=== PATIENT | male | born 1950 | race Caucasian/White ===

== ENCOUNTER 2018-09-16 09:55 | Emergency (ER) | payer MEDICARE ==
[2018-09-16 10:08] VITALS: PULSE 75; RESP 16; TEMP 98.1
[2018-09-16] MEDS ORDERED: SODIUM CHLORIDE 0.9% 500 ML 500 ML IV STA (10:22)
--- NOTE | 2018-09-16 10:58 | ED ---
Weakness HPI - General Chief complaint: Weakness Stated complaint: Decreased Mobility Time Seen by Provider: 09/16/18 10:10 Source: patient, EMS Mode of arrival: EMS Limitations: physical limitation - History of Present Illness Initial comments: 67-year-old male history of previous CVA tenderness prior presents today for chief complaint of left leg weakness 2 weeks. Patient states about 2-3 weeks ago he noticed that his left leg felt weak in comparison to the right he states he was scared to walk secondary to the weakness. Patient denied any headache speech changes neck pain nausea head injury decreased sensation dizziness or any other associated symptoms at the time of onset. Patient denies any falls or injury. Patient states he's been wheeling around on a wheelchair for the past 2 weeks at home. His family brought over her walker and states that he was able to walk steadily with a 4 wheeled walker. Patient states he still feels as th ough the left leg is weak. Patient denies any chest pain shortness of breath leg swelling. Remaining review of system negative. Patient states his family made him come in. Upon arrival patient VS within acceptable limits. Patient appears well. Family member at bedside states that patient is at baseline. - Related Data Home Medications Medication Instructions Recorded Confirmed Cholecalciferol (Vitamin D3) 2,000 unit PO DAILY 09/16/18 09/16/18 [Vitamin D3] Lisinopril [Zestril] 20 mg PO DAILY 09/16/18 09/16/18 Simvastatin [Zocor] 40 mg PO DAILY 09/16/18 09/16/18 Allergies Allergy/AdvReac Type Severity Reaction Status Date / Time No Known Allergies Allergy Unverified 09/16/18 10:09 Review of Systems ROS Statement: Those systems with pertinent positive or pertinent negative responses have been documented in the HPI. ROS Other: All systems not noted in ROS Statement are negative. General Exam - General Exam Comments Initial Comments: General: The patient is awake and alert, in no distress, and does not appear acutely ill. Eye: +3 mm pupils are equal, round and reactive to light, extra-ocular movements are intact. No nystagmus. There is normal conjunctiva bilaterally. No signs of icterus. Ears, nose, mouth and throat: There are moist mucous membranes and no oral lesions. Neck: The neck is supple, there is no tenderness or JVD. Cardiovascular: There is a regular rate and rhythm. No murmur, rub or gallop is appreciated. Respiratory: Lungs are clear to auscultation, respirations are non-labored, breath sounds are equal. No wheezes, stridor, rales, or rhonchi. Gastrointestinal: Soft, non-distended, non-tender abdomen without masses or organomegaly noted. There is no rebound or guarding present. No CVA tenderness. Bowel sounds are unremarkable. Normal rectal tone. No blood. No hemorrhoids/ma sses palpable. Musculoskeletal: Normal inspection of the low back, hips and knees. Patient is able to fully range at the hips bilaterally however complains of tenderness wit h flexion at the left hip in the lumbar spine. Normal ROM, no tenderness at the right hip knees and ankles bilaterally. Strength 5/5 at the hips, knees and ankles b/l appears equal. Sensation intact of the LE equal in comparison b/l. Radial and DP pulses equal bilaterally 2+. Neurological: A&O x 3. CN II-XII intact, memory intact to immediately, intermediate and lobsterman recall. Able to follow simple verbal. Able to name a common object (pen). High quality, labial (pa) and lingual (la) speech. Low quality posterior pharynx/larynx (ga) voice sounds. Able to express general knowledge (days in a week). No hemineglect or inattention noted. Finger agnosia (-) and spatially oriented. Light touch sensation present over the face, chest, abdomen, back, UE bilaterally, and LE bilaterally. Able to localize point during point localization b/l and extinction. No visible bulk atrophy, hypertrophy, fasciculations, or myoclonus of the UE or LE b/l. Full PROM in UE and LE b/l. Bilateral muscle strength 5/5 for the following muscles: deltoid, biceps, triceps, brachioradialis, wrist extensors/flexor, hip flexor, hip abductors/adductors, hamstrings, quadriceps, feet dorsiflexors/plantar flexors. Finger to nose, finger to the examiners finger, and heel to damon coordinated and accurate b/l. Coordinated and even demonstration of hand flip, finger to thumb, and toe tap b/l. (-) pronator drift. No nuchal rigidity. Skin: Skin is warm and dry and no rashes or lesions are noted. Psychiatric: Cooperative, appropriate mood & affect, normal judgment. Limitations: physical limitation Course Vital Signs 09/16/18 09/16/18 09/16/18 09:56 12:15 13:43 Temperature 98.1 F 98.1 F 98.1 F Pulse Rate 75 75 75 Respiratory 16 16 16 Rate Blood Pressure 136/84 128/76 138/76 O2 Sat by Pulse 98 99 99 Oximetry EKG Findings - EKG Comments: EKG Findings:: Ventricular rate 74 bpm, LA interval 162 ms, QRS duration 88 ms, QT/QTC 386/428 ms. There is no ST elevation or depression. Nonspecific T wave. Medical Decision Making - Medical Decision Making 67-year-old male presenting for low back pain and decreased ability to ambulate due to left leg subjective weakness. There is no objective weakness on examination. Normal rectal tone. Patient denies a loss of bladder control. There is no clinical symptoms of cauda equina. Full sensation. No other focal neurological deficits. Patient does have history of previous CVA CT of the brain without contrast obtained revealing a remote left frontal infarct no acute findings. Patient denies any other neurological symptoms aside from the left leg weakness. Patient is able to ambulate in the emergency department with a walker. Patient states he feels stable enough to go home he states he is staying at a place with a ramp and one level. Patient was evaluated and person by his primary care provider who was in the emergency department during his stay today. He recommended discharge and patient was able to ambulate. He reviewed imaging studies. I discussed case by attending provider Dr. Ralph who reviewed imaging studies. I feel this is progressive spinal stenosis with radiculopathy. The size symptoms or cauda equina were discussed at length patient verbalizes understanding. I recommended outpatient MRI as well as follow-up with orthopedic surgery. Patient verbalizes understanding of the importance of follow-up as well as return parameters. He states he would like to be discharged at this time. Patient was and laboratory upon discharge. N eurovascular intact. Attending provider is agreeable with care plan - Lab Data Result diagrams: 09/16/18 10:40 09/16/18 10:40 Lab Results 09/16/18 09/16/18 09/16/18 Range/Units 10:40 10:40 10:40 WBC 11.9 H (3.8-10.6) k/uL RBC 5.06 (4.30-5.90) m/uL Hgb 16.2 (13.0-17.5) gm/dL Hct 48.7 (39.0-53.0) % MCV 96.2 (80.0-100.0) fL MCH 32.0 (25.0-35.0) pg MCHC 33.3 (31.0-37.0) g/dL RDW 13.3 (11.5-15.5) % Plt Count 285 (150-450) k/uL Neutrophils % 76 % Lymphocytes % 17 % Monocytes % 4 % Eosinophils % 2 % Basophils % 0 % Neutrophils # 9.0 H (1.3-7.7) k/uL Lymphocytes # 2.0 (1.0-4.8) k/uL Monocytes # 0.5 (0-1.0) k/uL Eosinophils # 0.3 (0-0.7) k/uL Basophils # 0.0 (0-0.2) k/uL PT (9.0-12.0) sec INR (<1.2) APTT (22.0-30.0) sec Sodium 140 (137-145) mmol/L Potassium 4.2 (3.5-5.1) mmol/L Chloride 108 H (98-107) mmol/L Carbon Dioxide 23 (22-30) mmol/L Anion Gap 9 mmol/L BUN 17 (9-20) mg/dL Creatinine 0.74 (0.66-1.25) mg/dL Est GFR (CKD-EPI)AfAm >90 (>60 ml/min/1.73 sqM) Est GFR (CKD-EPI)NonAf >90 (>60 ml/min/1.73 sqM) Glucose 106 H (74-99) mg/dL Plasma Lactic Acid Cristian 1.4 (0.7-2.0) mmol/L Calcium 9.5 (8.4-10.2) mg/dL Total Bilirubin 0.6 (0.2-1.3) mg/dL AST 27 (17-59) U/L ALT 33 (21-72) U/L Alkaline Phosphatase 62 (38-126) U/L Troponin I (0.000-0.034) ng/mL Total Protein 7.0 (6.3-8.2) g/dL Albumin 4.6 (3.5-5.0) g/dL 09/16/18 09/16/18 Range/Units 10:40 10:40 WBC (3.8-10.6) k/uL RBC (4.30-5.90) m/uL Hgb (13.0-17.5) gm/dL Hct (39.0-53.0) % MCV (80.0-100.0) fL MCH (25.0-35.0) pg MCHC (31.0-37.0) g/dL RDW (11.5-15.5) % Plt Count (150-450) k/uL Neutrophils % % Lymphocytes % % Monocytes % % Eosinophils % % Basophils % % Neutrophils # (1.3-7.7) k/uL Lymphocytes # (1.0-4.8) k/uL Monocytes # (0-1.0) k/uL Eosinophils # (0-0.7) k/uL Basophils # (0-0.2) k/uL PT 10.6 (9.0-12.0) sec INR 1.0 (<1.2) APTT 22.5 (22.0-30.0) sec Sodium (137-145) mmol/L Potassium (3.5-5.1) mmol/L Chloride (98-107) mmol/L Carbon Dioxide (22-30) mmol/L Anion Gap mmol/L BUN (9-20) mg/dL Creatinine (0.66-1.25) mg/dL Est GFR (CKD-EPI)AfAm (>60 ml/min/1.73 sqM) Est GFR (CKD-EPI)NonAf (>60 ml/min/1.73 sqM) Glucose (74-99) mg/dL Plasma Lactic Acid Cristian (0.7-2.0) mmol/L Calcium (8.4-10.2) mg/dL Total Bilirubin (0.2-1.3) mg/dL AST (17-59) U/L ALT (21-72) U/L Alkaline Phosphatase (38-126) U/L Troponin I 0.020 (0.000-0.034) ng/mL Total Protein (6.3-8.2) g/dL Albumin (3.5-5.0) g/dL Disposition Clinical Impression: Spinal stenosis, Low back pain Disposition: HOME SELF-CARE Condition: Good Instructions (If sedation given, give patient instructions): Lumbar Spinal Stenosis (ED) Additional Instructions: Please use medication as discussed. Please follow-up with family doctor in the next 2 days, please use 4 wheel walker for ambulation as discussed. Return for loss of bowel or bladder control, loss of sensation of the lower extremities. Please follow-up with Dr. Nayg and primary, obtain MRI within the next 1-2 weeks as discussed with Dr. Higgins and myself. Please return to emergency room if the symptoms increase or worsen or for any other concerns. Is patient prescribed a controlled substance at d/c from ED?: No Referrals: Dave Higgins MD [Primary Care Provider] - 1-2 days Cathleen Nagy DO [Doctor of Osteopathic Medicine] - 1-2 days Time of Disposition: 12:36
[2018-09-16 11:01] LABS: Basophils % (A) 0 %; Eosinophils # (A) 0.3 k/uL (0-0.7); Eosinophils % (A) 2 %; HCT 48.7 % (39.0-53.0); HGB 16.2 gm/dL (13.0-17.5); Lymphocytes % (A) 17 %; MCHC 33.3 g/dL (31.0-37.0); MCV 96.2 fL (80.0-100.0); Mean Platelet Volume 8.4; Monocytes # (A) 0.5 k/uL (0-1.0); Monocytes % (A) 4 %; Neutrophils % (A) 76 %; Platelet Count 285 k/uL (150-450); RBC 5.06 m/uL (4.30-5.90); RDW 13.3 % (11.5-15.5); WBC 11.9 k/uL (3.8-10.6)
[2018-09-16 11:07] LABS: Partial Thromboplastin Time 22.5 sec (22.0-30.0); Prothrombin Time 10.6 sec (9.0-12.0)
--- NOTE | 2018-09-16 11:07 | XR ---
EXAMINATION TYPE: XR chest 2V DATE OF EXAM: 09/16/2018 COMPARISON: Prior chest x-ray 08/22/2008 HISTORY: Weakness TECHNIQUE: Frontal and lateral views of the chest are obtained. FINDINGS: There is no focal air space opacity, pleural effusion, or pneumothorax seen. The cardiac silhouette size is within normal limits. Aorta is tortuous. The osseous structures are intact. IMPRESSION: No acute cardiopulmonary process.
--- NOTE | 2018-09-16 11:10 | CT ---
EXAMINATION TYPE: CT brain wo con DATE OF EXAM: 09/16/2018 COMPARISON: 08/22/2008 HISTORY: 67-year-old male Generalized weakness TECHNIQUE: Examination was done in axial plane without intravenous contrast. Coronal and sagittal r econstructions performed. CT DLP: 1099.4 mGycm Automated exposure control for dose reduction was used. FINDINGS: Encephalomalacia left frontal lobe from prior infarct. There is a stent within the M2 branch MCA on t he left. Faint benign basal ganglionic calcifications are noted. There is no evidence of acute intracranial hemorrhage, acute ischemic changes, mass, mass-effect, or extra-axial fluid collection. There is no effacement of cerebral sulci or basal subarachnoid cister ns. There is no hydrocephalus. There is no midline shift. Frederick-white matter distinction is preserv ed. Mild mucosal thickening posterior ethmoid air cells. Mastoid air cells are well pneumatized. Orbits a nd globes are intact. IMPRESSION: Remote left frontal lobe infarct. A stent is seen within the M2 segment left MCA. No acute intracrani al abnormality seen.
[2018-09-16 11:14] LABS: ALT 33 U/L (21-72); AST 27 U/L (17-59); African American GFR (CKD) >90 (>60 ml/min/1.73 sqM); Albumin 4.6 g/dL (3.5-5.0); Alkaline Phosphatase 62 U/L (38-126); Anion Gap 9 mmol/L; Blood Urea Nitrogen 17 mg/dL (9-20); Calcium 9.5 mg/dL (8.4-10.2); Carbon Dioxide 23 mmol/L (22-30); Chloride 108 mmol/L (98-107); Glucose 106 mg/dL (74-99); Potassium 4.2 mmol/L (3.5-5.1); Sodium 140 mmol/L (137-145); Total Bilirubin 0.6 mg/dL (0.2-1.3)
--- NOTE | 2018-09-16 11:49 | CT ---
EXAMINATION TYPE: CT lumbar spine wo con DATE OF EXAM: 09/16/2018 11:35 AM COMPARISON: None HISTORY: Generalized weakness CT DLP: 1609 mGycm Automated exposure control for dose reduction was used. Unenhanced CT of the lumbar spine was performed. Bone and soft tissue window settings are submitted as well as coronal and sagittal reconstructions. Diffuse disc bulging with vacuum disc at L1-L2 and L2-L3. Probable canal stenosis and foraminal encro achment. Findings are more advanced at L3-L4 and L4-5 facet arthropathy and ligamentum flavum hypertrophy sneha re canal stenosis with bilateral foraminal encroachment. At L5-S1 there is facet arthropathy and severe degenerative disc disease with vacuum disc. Bilateral foraminal encroachment noted. No obvious disc herniation. Indeterminate left renal lesion seen. Assessment spinal canal limited due to noncontrast technique an d resolution. There is multilevel severe degenerative disc disease and hypertrophic changes at all vi sualized levels. 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 Mild wall thickening the sigmoid colon ma y be related to peristalsis correlate clinically to exclude mucosal lesion. IMPRESSION: 1. Multilevel severe degenerative disc disease and facet arthropathy with multilevel disc bulging res ulting in multilevel canal stenosis as discussed above. Given limitation exam MRI is recommended. 2. Mild wall thickening the sigmoid colon may been the basis of peristalsis rather than mucosal lesio n correlate clinically.
[2018-09-16 13:46] VITALS: BP 138/76
== END 2018-09-16 13:40 | disposition home or self-care (01) ==
LOC: EC 09:55
DX: M48.061 Spinal stenosis, lumbar region without neurogenic claudication (principal); M54.16 Radiculopathy, lumbar region; Z86.73 Personal history of transient ischemic attack (TIA), and cerebral infarction without residual deficits; Z79.899 Other long term (current) drug therapy
CPT/HCPCS: 36415; 70450; 71046; 72131; 80053; 83605; 84484; 85025; 85610; 85730; 93005; 99285

== ENCOUNTER 2023-12-15 11:31 | Emergency (ER) | payer MEDICARE ==
--- NOTE | 2023-12-15 12:06 | ED ---
Altered Mental Status HPI - General Chief Complaint: Altered Mental Status Stated Complaint: AMS Time Seen by Provider: 12/15/23 11:50 Source: patient, EMS, RN notes reviewed Mode of arrival: EMS Limitations: no limitations - History of Present Illness Initial Comments: 73-year-old male with history of CVA, dementia, hyperlipidemia, and hypertension presenting via EMS for altered mental status. Patient states he lives in a correction home. He states he was eating on the toilet having a bowel movement when he noticed it was diarrhea. He states he started to feel "off" which is when he called EMS. He states this only lasted a few moments and feels he is back to his baseline now with no symptoms. States he did not fall or lose consciousness. States the diarrhea began this morning, normal bowel movement yesterday. Denies chest pain, shortness of breath, headache, abdominal pain, urinary symptoms, fever, chills, cough, nasal congestion, sore throat, back pain. He does have a history of a stroke with right-sided deficit 15 years ago, denies blood thinners. His brother is present upon examination who states he feels patient is at his baseline. - Related Data Home Medications Medication Instructions Recorded Confirmed lisinopriL [Zestril] 20 mg PO DAILY 09/16/18 12/15/23 Cholecalciferol (Vitamin D3) 50 mcg PO DAILY 12/15/23 12/15/23 [Vitamin D3 (50 Mcg = 2000 Iu)] Famotidine [Pepcid] 20 mg PO BID 12/15/23 12/15/23 Rosuvastatin [Crestor] 20 mg PO DAILY 12/15/23 12/15/23 Triamterene/Hydrochlorothiazid 1 tab PO DAILY 12/15/23 12/15/23 [Triamterene-Hctz 37.5-25 mg Tb] metFORMIN HCL 1,000 mg PO BID-W/MEALS 12/15/23 12/15/23 Allergies Allergy/AdvReac Type Severity Reaction Status Date / Time No Known Allergies Allergy Verified 12/15/23 11:52 Review of Systems ROS Statement: Those systems with pertinent positive or pertinent negative responses have been documented in the HPI. ROS Other: All systems not noted in ROS Statement are negative. Past Medical History Past Medical History: CVA/TIA, Dementia, Hyperlipidemia, Hypertension Additional Past Medical History / Comment(s): Stroke about 15 years ago, History of Any Multi-Drug Resistant Organisms: None Reported Additional Past Surgical History / Comment(s): Stent in brain Smoking Status: Former smoker Past Alcohol Use History: None Reported Past Drug Use History: None Reported General Exam Limitations: no limitations General appearance: alert, in no apparent distress, other (Patient has difficulty articulating speech, however mother states this is chronic due to dementia and stroke. Patient responds to verbal commands with no difficulties.) Head exam: Present: atraumatic, normocephalic, normal inspection Eye exam: Present: normal appearance, PERRL, EOMI. Absent: scleral icterus, conjunctival injection, periorbital swelling ENT exam: Present: normal exam, mucous membranes moist Neck exam: Present: normal inspection. Absent: tenderness, meningismus, lymphadenopathy Respiratory exam: Present: normal lung sounds bilaterally. Absent: respiratory distress, wheezes, rales, rhonchi, stridor Cardiovascular Exam: Present: regular rate, normal rhythm, normal heart sounds. Absent: systolic murmur, diastolic murmur, rubs, gallop, clicks GI/Abdominal exam: Present: soft, normal bowel sounds. Absent: distended, tenderness, guarding, rebound, rigid Extremities exam: Present: normal inspection, full ROM, normal capillary refill. Absent: tenderness, pedal edema, joint swelling, calf tenderness Back exam: Absent: CVA tenderness (R), CVA tenderness (L) Neurological exam: Present: alert, oriented X3, CN II-XII intact Psychiatric exam: Present: normal affect, normal mood Skin exam: Present: warm, dry, intact, normal color. Absent: rash Course Vital Signs 12/15/23 12/15/23 12/15/23 11:37 13:11 14:07 Temperature 99.7 F H Pulse Rate 122 H 129 H 78 Respiratory 18 24 20 Rate Blood Pressure 133/92 191/107 152/94 O2 Sat by Pulse 95 94 L 96 Oximetry 12/15/23 12/15/23 12/15/23 15:25 16:15 16:42 Temperature 98.6 F 98.9 F Pulse Rate 117 H 108 H 83 Respiratory 20 17 Rate Blood Pressure 131/83 124/80 O2 Sat by Pulse 95 95 Oximetry Medical Decision Making - Medical Decision Making Was pt. sent in by a medical professional or institution (Dr., PA, MAINTENANCE CRAFTSMAN, urgent care, hospital, or fpc...) When possible be specific @ -No Did you speak to anyone other than the patient for history (EMS, parent, family, police, friend...)? What history was obtained from this source @ -Brother supplemented history Did you review nursing and triage notes (agree or disagree)? Why? @ -I reviewed and agree with nursing and triage notes Were old charts reviewed (outside hosp., previous admission, EMS record, old EKG, old radiological studies, urgent care reports/EKG's, fpc records)? Report findings @ -No old charts were reviewed Differential Diagnosis (chest pain, altered mental status, abdominal pain women, abdominal pain men, vaginal bleeding, weakness, fever, dyspnea, syncope, headac he, dizziness, GI bleed, back pain, seizure, CVA, palpatations, mental health, musculoskeletal)? @ -Differential Altered Mental Status: Hypoglycemia, DKA, hypercapnia, ETOH, overdose, CO poisoning, trauma, myxedema coma, HTN encephalopathy, infection, encephalitis, psychosis, intercranial hemorrhage, hepatic encephalopathy, meningitis, CVA, this is not meant to be an all-inclusive list EKG interpreted by me (3pts min.). @ -As above X-rays interpreted by me (1pt min.). @ -Chest x-ray revealed low lung volumes with generalized hazy appearance CT interpreted by me (1pt min.). @ -None done U/S interpreted by me (1pt. min.). @ -None done What testing was considered but not performed or refused? (CT, X-rays, U/S, labs)? Why? @ -None What meds were considered but not given or refused? Why? @ -Paxlovid considered however onset of COVID unknown as patient is asymptomatic Did you discuss the management of the patient with other professionals (professionals i.e. , PA, MAINTENANCE CRAFTSMAN, lab, RT, psych nurse, community mental health social worker, flake drier, teacher, sergeant of officers, vocational case manager)? Give summary @ -No Was smoking cessation discussed for >3mins.? @ -No Was critical care preformed (if so, how long)? @ -No Were there social determinants of health that impacted care today? How? (Homelessness, low income, unemployed, alcoholism, drug addiction, transportation, low edu. Level, literacy, decrease access to med. care, skilled nursing, rehab)? @ -No Was there de-escalation of care discussed even if they declined (Discuss DNR or withdrawal of care, Hospice)? DNR status @ -No What co-morbidities impacted this encounter? (DM, HTN, Smoking, COPD, CAD, Cancer, CVA, ARF, Chemo, Hep., AIDS, mental health diagnosis, sleep apnea, mor bid obesity)? @ -None Was patient admitted / discharged? Hospital course, mention meds given and rou te, prescriptions, significant lab abnormalities, going to OR and other pertinent info. @ -Patient was discharged. This is a 73-year-old male presenting with altered mental status this morning. Patient states he was having an episode of diarrhea this morning when he felt "off" for several moments prompting him to call EMS. Patient states he is currently asymptomatic. Brother is present upon ex amination and states patient is at baseline. Patient is initially tachycardic and hypertensive. Physical examination is unremarkable. Laboratory studies including CBC, CMP, lactic acid, troponin, coags are unremarkable. EKG reveals sinus tachycardia with no ST changes. Chest x-ray reveals low lung volumes with generalized hazy appearance. Patient is COVID-positive, influenza and RSV negative. Discussed findings with patient as well as diagnosis of COVID-19 with patient. Patient's heart rate decreases during ER visit and eventually stabilizes to 83 bpm. I believe it is reasonable that patient is discharged at this time as he is asymptomatic with strict return precautions. Patient is agreeable to plan. Case was discussed with my ED attending to Dr. Guillaume. Undiagnosed new problem with uncertain prognosis? @ -No Drug Therapy requiring intensive monitoring for toxicity (Heparin, Nitro, Insulin, Cardizem)? @ -No Were any procedures done? @ -No Diagnosis/symptom? @ -COVID-19 Acute, or Chronic, or Acute on Chronic? @ -Acute Uncomplicated (without systemic symptoms) or Complicated (systemic symptoms)? @ -Uncomplicated Side effects of treatment? @ -No Exacerbation, Progression, or Severe Exacerbation? @ -No Poses a threat to life or bodily function? How? (Chest pain, [place], [place], pneumonia, PE, COPD, DKA, ARF, appy, cholecystitis, CVA, Diverticulitis, Homicidal, Suicidal, threat to staff... and all critical care pts) @ -Not at this time - Lab Data Result diagrams: 12/15/23 12:08 12/15/23 12:08 Lab Results 12/15/23 12/15/23 12/15/23 Range/Units 12:08 12:08 12:08 WBC 10.8 H (3.8-10.6) k/uL RBC 4.75 (4.30-5.90) m/uL Hgb 14.9 (13.0-17.5) gm/dL Hct 46.3 (39.0-53.0) % MCV 97.4 (80.0-100.0) fL MCH 31.3 (25.0-35.0) pg MCHC 32.1 (31.0-37.0) g/dL RDW 12.7 (11.5-15.5) % Plt Count 302 (150-450) k/uL MPV 8.2 Neutrophils % 85 % Lymphocytes % 8 % Monocytes % 5 % Eosinophils % 1 % Basophils % 0 % Neutrophils # 9.3 H (1.3-7.7) k/uL Lymphocytes # 0.8 L (1.0-4.8) k/uL Monocytes # 0.6 (0-1.0) k/uL Eosinophils # 0.1 (0-0.7) k/uL Basophils # 0.0 (0-0.2) k/uL PT 11.1 (10.0-12.5) sec INR 1.0 (<1.2) APTT 24.1 (22.0-30.0) sec Sodium 135 L (137-145) mmol/L Potassium 4.7 (3.5-5.1) mmol/L Chloride 99 (98-107) mmol/L Carbon Dioxide 26 (22-30) mmol/L Anion Gap 10 mmol/L BUN 17 (9-20) mg/dL Creatinine 1.00 (0.66-1.25) mg/dL Est GFR (CKD-EPI)AfAm 85 (>60 ml/min/1.73 sqM) Est GFR (CKD-EPI)NonAf 73 (>60 ml/min/1.73 sqM) Glucose 140 H (74-99) mg/dL Lactic Ac Sepsis Rflx Plasma Lactic Acid Cristian (0.7-2.0) mmol/L Calcium 9.5 (8.4-10.2) mg/dL Total Bilirubin 0.6 (0.2-1.3) mg/dL AST 31 (17-59) U/L ALT 19 (4-49) U/L Alkaline Phosphatase 55 (38-126) U/L Troponin I (0.000-0.034) ng/mL Total Protein 6.7 (6.3-8.2) g/dL Albumin 4.5 (3.5-5.0) g/dL Urine Color Urine Appearance (Clear) Urine pH (5.0-8.0) Ur Specific [place] (1.001-1.035) Urine Protein (Negative) Urine Glucose (UA) (Negative) Urine Ketones (Negative) Urine Blood (Negative) Urine Nitrite (Negative) Urine Bilirubin (Negative) Urine Urobilinogen (<2.0) mg/dL Ur Leukocyte Esterase (Negative) Urine WBC (0-5) /hpf Ur Squamous Epith Cells (0-4) /hpf Urine Bacteria (None) /hpf Influenza Type A (PCR) (Not Detectd) Influenza Type B (PCR) (Not Detectd) RSV (PCR) (Not Detectd) SARS-CoV-2 (PCR) (Not Detectd) 12/15/23 12/15/23 12/15/23 Range/Units 12:08 12:08 12:08 WBC (3.8-10.6) k/uL RBC (4.30-5.90) m/uL Hgb (13.0-17.5) gm/dL Hct (39.0-53.0) % MCV (80.0-100.0) fL MCH (25.0-35.0) pg MCHC (31.0-37.0) g/dL RDW (11.5-15.5) % Plt Count (150-450) k/uL MPV Neutrophils % % Lymphocytes % % Monocytes % % Eosinophils % % Basophils % % Neutrophils # (1.3-7.7) k/uL Lymphocytes # (1.0-4.8) k/uL Monocytes # (0-1.0) k/uL Eosinophils # (0-0.7) k/uL Basophils # (0-0.2) k/uL PT (10.0-12.5) sec INR (<1.2) APTT (22.0-30.0) sec Sodium (137-145) mmol/L Potassium (3.5-5.1) mmol/L Chloride (98-107) mmol/L Carbon Dioxide (22-30) mmol/L Anion Gap mmol/L BUN (9-20) mg/dL Creatinine (0.66-1.25) mg/dL Est GFR (CKD-EPI)AfAm (>60 ml/min/1.73 sqM) Est GFR (CKD-EPI)NonAf (>60 ml/min/1.73 sqM) Glucose (74-99) mg/dL Lactic Ac Sepsis Rflx Plasma Lactic Acid Cristian 2.1 H* (0.7-2.0) mmol/L Calcium (8.4-10.2) mg/dL Total Bilirubin (0.2-1.3) mg/dL AST (17-59) U/L ALT (4-49) U/L Alkaline Phosphatase (38-126) U/L Troponin I <0.012 (0.000-0.034) ng/mL Total Protein (6.3-8.2) g/dL Albumin (3.5-5.0) g/dL Urine Color Urine Appearance (Clear) Urine pH (5.0-8.0) Ur Specific [place] (1.001-1.035) Urine Protein (Negative) Urine Glucose (UA) (Negative) Urine Ketones (Negative) Urine Blood (Negative) Urine Nitrite (Negative) Urine Bilirubin (Negative) Urine Urobilinogen (<2.0) mg/dL Ur Leukocyte Esterase (Negative) Urine WBC (0-5) /hpf Ur Squamous Epith Cells (0-4) /hpf Urine Bacteria (None) /hpf Influenza Type A (PCR) Not Detected (Not Detectd) Influenza Type B (PCR) Not Detected (Not Detectd) RSV (PCR) Not Detected (Not Detectd) SARS-CoV-2 (PCR) Detected A (Not Detectd) 12/15/23 12/15/23 12/15/23 Range/Units 12:40 13:06 15:44 WBC (3.8-10.6) k/uL RBC (4.30-5.90) m/uL Hgb (13.0-17.5) gm/dL Hct (39.0-53.0) % MCV (80.0-100.0) fL MCH (25.0-35.0) pg MCHC (31.0-37.0) g/dL RDW (11.5-15.5) % Plt Count (150-450) k/uL MPV Neutrophils % % Lymphocytes % % Monocytes % % Eosinophils % % Basophils % % Neutrophils # (1.3-7.7) k/uL Lymphocytes # (1.0-4.8) k/uL Monocytes # (0-1.0) k/uL Eosinophils # (0-0.7) k/uL Basophils # (0-0.2) k/uL PT (10.0-12.5) sec INR (<1.2) APTT (22.0-30.0) sec Sodium (137-145) mmol/L Potassium (3.5-5.1) mmol/L Chloride (98-107) mmol/L Carbon Dioxide (22-30) mmol/L Anion Gap mmol/L BUN (9-20) mg/dL Creatinine (0.66-1.25) mg/dL Est GFR (CKD-EPI)AfAm (>60 ml/min/1.73 sqM) Est GFR (CKD-EPI)NonAf (>60 ml/min/1.73 sqM) Glucose (74-99) mg/dL Lactic Ac Sepsis Rflx Y Plasma Lactic Acid Cristian 1.3 (0.7-2.0) mmol/L Calcium (8.4-10.2) mg/dL Total Bilirubin (0.2-1.3) mg/dL AST (17-59) U/L ALT (4-49) U/L Alkaline Phosphatase (38-126) U/L Troponin I (0.000-0.034) ng/mL Total Protein (6.3-8.2) g/dL Albumin (3.5-5.0) g/dL Urine Color Yellow Urine Appearance Clear (Clear) Urine pH 8.0 (5.0-8.0) Ur Specific [place] 1.017 (1.001-1.035) Urine Protein Negative (Negative) Urine Glucose (UA) Negative (Negative) Urine Ketones Negative (Negative) Urine Blood Negative (Negative) Urine Nitrite Negative (Negative) Urine Bilirubin Negative (Negative) Urine Urobilinogen <2.0 (<2.0) mg/dL Ur Leukocyte Esterase Trace H (Negative) Urine WBC 1 (0-5) /hpf Ur Squamous Epith Cells 2 (0-4) /hpf Urine Bacteria Rare H (None) /hpf Influenza Type A (PCR) (Not Detectd) Influenza Type B (PCR) (Not Detectd) RSV (PCR) (Not Detectd) SARS-CoV-2 (PCR) (Not Detectd) - EKG Data -: EKG Interpreted by Me EKG Comments: EKG reveals sinus tachycardia with no ST changes, ventricular rate 123 bpm, TX interval 187, QRS duration 95, QT/QTc 314/387 Disposition Clinical Impression: COVID-19 Disposition: HOME SELF-CARE Condition: Stable Instructions (If sedation given, give patient instructions): COVID-19 (Coronavirus Disease 2019) (ED), How to Recover from COVID-19 at Home (ED) Additional Instructions: Take ibuprofen or Tylenol as needed for pain/fever. Please return to the Emergency Department if symptoms worsen or any other concerns. Is patient prescribed a controlled substance at d/c from ED?: No Referrals: Dave Higgins MD [Primary Care Provider] - 1-2 days Time of Disposition: 16:33
--- NOTE | 2023-12-15 12:35 | CT ---
EXAMINATION TYPE: CT brain wo con CT DLP: 1213.4 mGycm, Automated exposure control for dose reduction was used. DATE OF EXAM: 12/15/2023 12:28 PM COMPARISON: Prior CT Brain from 09/16/2018. CLINICAL INDICATION:Male, 73 years old with history of altered mental status, AMS, right side weaknes s TECHNIQUE: Brain: Multiple axial CT images of the brain were obtained without IV contrast. . Coronal and sagitta l reformats reviewed. FINDINGS: Brain: Extra-axial spaces: No abnormal extra-axial fluid collections. Ventricular system: Mild prominence of the left lateral ventricle due to adjacent encephalomalacia. Cerebral parenchyma: No acute intraparenchymal hemorrhage or mass effect. The sylvester-white junction is well differentiated. Scattered hypoattenuating areas are seen within the periventricular white matte r. Encephalomalacia from prior left MCA infarct redemonstrated. Faint benign basal ganglia calcifica tions noted. Cerebellum: Unremarkable. Mass effect: No evidence of midline shift. Intracranial vasculature: Stent within the M2 branch of the left MCA redemonstrated. Soft tissues: Normal. Calvarium/osseous structures: No depressed skull fracture. Paranasal sinuses and mastoid air cells: Clear Visualized orbits: Orbital contents are intact. IMPRESSION: 1. No acute intracranial process. 2. Encephalomalacia from prior left MCA infarct with left MCA M2 segment stent identified. [facility], , 12/15/2023 12:33 PM
[2023-12-15 12:38] LABS: Basophils % (A) 0 %; Eosinophils # (A) 0.1 k/uL (0-0.7); Eosinophils % (A) 1 %; HCT 46.3 % (39.0-53.0); HGB 14.9 gm/dL (13.0-17.5); Lymphocytes # (A) 0.8 k/uL (1.0-4.8); Lymphocytes % (A) 8 %; MCH 31.3 pg (25.0-35.0); MCHC 32.1 g/dL (31.0-37.0); MCV 97.4 fL (80.0-100.0); Mean Platelet Volume 8.2; Monocytes # (A) 0.6 k/uL (0-1.0); Monocytes % (A) 5 %; Neutrophils # (A) 9.3 k/uL (1.3-7.7); Neutrophils % (A) 85 %; Platelet Count 302 k/uL (150-450); RBC 4.75 m/uL (4.30-5.90); RDW 12.7 % (11.5-15.5); WBC 10.8 k/uL (3.8-10.6)
[2023-12-15 12:48] LABS: Partial Thromboplastin Time 24.1 sec (22.0-30.0); Prothrombin Time 11.1 sec (10.0-12.5)
[2023-12-15 13:06] LABS: Appearance,Urine Clear (Clear); Bacteria,Urine Rare /hpf; Bilirubin,Urine Negative (Negative); Blood,Urine Negative (Negative); Color,Urine Yellow; Glucose,Urine (UA) Negative (Negative); Ketones,Urine Negative (Negative); Leukocyte Esterase,Urine Trace (Negative); Nitrite,Urine Negative (Negative); Protein,Urine Negative (Negative); Specific Gravity,Urine 1.017 (1.001-1.035); Squamous Epithelial Cell,Urine 2 /hpf (0-4); Urobilinogen,Urine <2.0 mg/dL (<2.0); WBC,Urine 1 /hpf (0-5)
[2023-12-15 13:11] LABS: ALT 19 U/L (4-49); AST 31 U/L (17-59); African American GFR (CKD) 85 (>60 ml/min/1.73 sqM); Albumin 4.5 g/dL (3.5-5.0); Alkaline Phosphatase 55 U/L (38-126); Anion Gap 10 mmol/L; Blood Urea Nitrogen 17 mg/dL (9-20); Calcium 9.5 mg/dL (8.4-10.2); Carbon Dioxide 26 mmol/L (22-30); Chloride 99 mmol/L (98-107); Glucose 140 mg/dL (74-99); Non-African American GFR(CKD) 73 (>60 ml/min/1.73 sqM); Potassium 4.7 mmol/L (3.5-5.1); Sodium 135 mmol/L (137-145); Total Bilirubin 0.6 mg/dL (0.2-1.3); Total Protein 6.7 g/dL (6.3-8.2)
[2023-12-15] MEDS: ACETAMINOPHEN TAB 500 MG TAB PO STA (14:06)
--- NOTE | 2023-12-15 15:20 | XR ---
EXAMINATION TYPE: XR chest 1V DATE OF EXAM: 12/15/2023 2:46 PM CLINICAL INDICATION: Male, 73 years old with history of AMS; COMPARISON: Chest radiographs from 09/16/2018 TECHNIQUE: XR chest 1V Frontal view of the chest. FINDINGS: Lungs/Pleura: Low lung volumes are present. There is no evidence of pleural effusion, focal consolida tion, or pneumothorax. Pulmonary vascularity: Unremarkable. Heart/mediastinum: Cardiomediastinal silhouette is unremarkable. Musculoskeletal: No acute osseous pathology. IMPRESSION: Low lung volumes with a generalized hazy appearance which could represent atelectasis versus pulmonar y edema correlate with serum BNP. [facility], , 12/15/2023 3:18 PM
[2023-12-15 16:43] VITALS: BP 124/80; PULSE 83; RESP 17; TEMP 98.9
== END 2023-12-15 16:43 | disposition home or self-care (01) ==
LOC: EC 11:31
DX: R41.82 Altered mental status, unspecified
CPT/HCPCS: 36415; 70450; 71045; 80053; 81001; 83605; 84484; 85025; 85610; 85730; 87636; 93005; 99285